=== PATIENT | female | born 1995 | race Two or more races ===

== ENCOUNTER 2025-09-14 18:39 | Emergency (ER) | payer MEDICAID, OTHER ==
[~2025-09-14] VITALS: Ht 180.3 cm; Wt 148.6 kg
--- NOTE | 2025-09-14 20:06 | DVH ---
Procedure: CT HEAD WITHOUT CONTRAST Study Date and Requested Time: 09/14/2025 07:14 PM History: headache Comparison: CT BRAIN on DOS: 12/11/24 Dose: CTDI: 60.75 mGy DLP: 1.71 mGycm Technique: Multiplanar images obtained through the brain without intravenous contrast. Findings: Normal brain volume and formation. Mild chronic small vessel ischemic changes. No hemorrhages, masses, mass effect, midline shift, herniation or cytotoxic edema following a large vascular territory. No intra-axial or extra-axial fluid collections. No evidence of hydrocephalus. The basal cisterns are patent. The pituitary gland, sella and parasellar regions are unremarkable. The cerebellar tonsils are in normal position. The cerebellum is unremarkable. The orbits and globes are unremarkable. Near-complete opacification of the left sphenoid sinus with mucoperiosteal thickening of the ethmoid air cells, right sphenoid sinus and right frontal sinus. Mucous retention cyst within the left maxillary sinus. The bilateral mastoids are clear. There are no worrisome calvarial lesions. Impression: No evidence of acute intracranial abnormality. Sinus disease as detailed above.
[2025-09-14 20:57] VITALS: BP 146/98; PULSE 60; RESP 18; TEMP 98.5; O2SAT 94
[2025-09-14] MEDS ORDERED: AMOX875T4 PO (21:01)
[2025-09-14] MEDS ORDERED: ACET500T58 PO (21:01)
--- NOTE | 2025-09-14 21:02 | ED.PDOC ---
HPI (NEURO) HPI Comments 30-year-old female presents to ER with complaints of headache x3 days. Patient reports that she has been experiencing 10/10 generalized headache with associated sinus congestion x3 days. Reports he has been taking ibuprofen and Tylenol for her pain without relief. Patient presents to ER ambulatory on arrival, alert oriented x4, with steady gait, in no distress. Denies fever, body aches, chills, nausea/vomiting, numbness/tingling, vision changes, confusion, head injury, neck pain or any further symptoms/complaints Chief Complaint: Headache Time Seen by MD: 18:54 Primary Care Provider: UNKNOWN Reviewed Notes: Nurses Notes, Medications, Allergies Information Source: Patient Mode of Arrival: Ambulatory Past Medical History PAST MEDICAL HISTORY: Denies Surgical History: Denies all surgeries DETECTIVE AND INTELLIGENCE ANALYST History: No Pertinent DETECTIVE AND INTELLIGENCE ANALYST History [facility] 09-05-25 Family History Family History: Unknown Social History Smoker: Non-Smoker Alcohol: Denies ETOH Use Drugs: Denies Drug Use Lives In: Home Constitutional: denies: chills, diaphoresis, fatigue, fever, malaise, sweats, weakness, others EENTM: reports: others (As stated in HPI) Respiratory: denies: cough, hemoptysis, orthopnea, SOB at rest, shortness of breath, SOB with excertion, stridor, wheezing, others Cardiovascular: denies: chest pain, dizzy spells, diaphoresis, Dyspnea on exertion, edema, irregular heart beat, left arm pain, lightheadedness, palpitations, PND, syncope, others Gastrointestinal: denies: abdomen distended, abdominal pain, blood streaked bowels, constipated, diarrhea, dysphagia, difficulty swallowing, hematemesis, melena, nausea, poor appetite, poor fluid intake, rectal bleeding, rectal pain, vomiting, others Genitourinary: denies: abnormal vagina bleeding, burning, dyspareunia, dysuria, flank pain, frequency, hematuria, incontinence, pain, , vagina discharge, urgency, others Neurological: reports: others (As stated in HPI) Musculoskeletal: denies: back pain, gout, joint pain, joint swelling, muscle pain, muscle stiffness, neck pain, others Integumetry: denies: bruises, change in color, change in hair/nails, dryness, laceration, lesions, lumps, rash, wounds, others Allergic/Immunocompromised: denies: Difficulty Healing, Frequent Infections, Hives, Itching, others Hematologic/Lymphatic: denies: anemia, blood clots, easy bleeding, easy bruising, swollen glands, others Endocrine: denies: excessive hunger, excessive sweating, excessive thirst, excessive urination, flushing, intolerance to cold, intolerance to heat, unexplained weight gain, unexplained weight loss, others Psychiatric: denies: anxiety, bipolar disorder, depression, hopeless, panic disorder, schizophrenia, sleepless, suicidal, others Physical Exam General Appearance: No Apparent Distress, Obese HEENT: Normal ENT Inspection, PERRL/EOMI, Pharynx Normal, TMs Normal Neck: Full Range of Motion, Non-Tender, Normal Respiratory: Chest Non-Tender, Lungs Clear, No Accessory Muscle Use, No Respiratory Distress, Normal Breath Sounds Cardiovascular: No Murmur, No Gallop, Regular Rate/Rhythm Breast Exam: Deferred Gastrointestinal: NOT DONE Genitalia: Deferred Pelvic: Deferred Rectal: Deferred Extremities: Normal capillary refill, Normal range of motion Neurologic: Alert, servomechanism designer II-XII nml as Tested, No Motor Deficits, Normal Affect, Normal Mood, No Sensory Deficits Cerebellar Function: Normal Reflexes: Normal Skin: Dry, Normal Color, Warm Peripheral Pulses: 2+ carotid (R), 2+ carotid (L), 2+ Radial (R), 2+ Radial (L), 2+ Brachial (R), 2+ Brachial (L) Lymphatic: No Adenopathy Was a procedure done? Was a procedure done?: No Sedation Sedation?: No Differential Diagnosis (SZ) Headache: Cluster, Migraine, Closed Head Injury, Subarachnoid Hemorrhage, Subdural Hemorrhage, Mass Lesion X-Ray, Labs, Meds, VS Vital Signs Date Time Temp Pulse Resp B/P (MAP) Pulse Ox O2 Delivery O2 Flow Rate FiO2 09/14/25 20:57 98.5 60 18 146/98 (114) 94 98.5 09/14/25 18:41 97.5 62 18 156/103 97 97.5 PATIENT: RICHARD SHEETS ACCT: [id number] UNIT: [id number] : 1995 LOC: ER ROOM / BED: / AGE / SEX: 30 / F ADM STATUS: REG ER SERVICE [id number] ORDERING PHYSICIAN: FLAVIA RODRIGUEZ PROCEDURE(s): HWOCT - HEAD WITHOUT CONTRAST REASON: headache ORDER NUMBER(s): [id number], ACCESSION NUMBER(s): [id number] Procedure: CT HEAD WITHOUT CONTRAST Study Date and Requested Time: 09/14/2025 07:14 PM History: headache Comparison: CT BRAIN on DOS: 12/11/24 Dose: CTDI: 60.75 mGy DLP: 1.71 mGycm Technique: Multiplanar images obtained through the brain without intravenous contrast. Findings: Normal brain volume and formation. Mild chronic small vessel ischemic changes. No hemorrhages, masses, mass effect, midline shift, herniation or cytotoxic edema following a large vascular territory. No intra-axial or extra-axial fluid collections. No evidence of hydrocephalus. The basal cisterns are patent. The pituitary gland, sella and parasellar regions are unremarkable. The cerebellar tonsils are in normal position. The cerebellum is unremarkable. The orbits and globes are unremarkable. Near-complete opacification of the left sphenoid sinus with mucoperiosteal thickening of the ethmoid air cells, right sphenoid sinus and right frontal sinus. Mucous retention cyst within the left maxillary sinus. The bilateral mastoids are clear. There are no worrisome calvarial lesions. Impression: No evidence of acute intracranial abnormality. Sinus disease as detailed above. ATED BY: DAMON VINCENT DO DICTATED DATE/TIME: 09/14/252003 SIGNED BY: DAMON VINCENT DO SIGNED DATE/TIME: 09/14/252003 CC: CT head without contrast reviewed Toradol 60 mg IM ordered Patient had improvement in symptoms and in no distress prior to discharge Advised to drink plenty of fluids Advised to follow up with PCP in 1-2 days Patient verbalized understanding and agreeable with current plan of care Advised to return to ER immediately if symptoms worsen Images Reviewed?: Images reviewed and evaluated by me Time of 1ST Reevaluation: 20:34 Reevaluation 1ST: N/A Patient Education/Counseling: Diagnosis, Treatment, Prognosis, Need For Follow Up Family Education/Counseling: No Family Present Departure 1 Departure Time of Disposition: 20:59 Impression: Primary Impression: Acute sinusitis Qualified Codes: J01.90 - Acute sinusitis, unspecified Additional Impression: Generalized headache Disposition: HOME / SELF CARE / HOMELESS Condition: Stable e-Prescriptions Amoxicillin & Pot Clavulanate (Amoxicillin/Potassium Cla) 875 Mg Tab 1 TAB PO BID for 10 Days, #20 TAB 0 Refills Prov: FLAVIA RODRIGUEZ 09/14/25 Acetaminophen (Acetaminophen) 500 Mg Tab 500 MG PO Q4HPRN, #30 TAB 0 Refills Prov: FLAVIA RODRIGUEZ 09/14/25 Discharged With: Self Critical Care Note Critical Care Time?: No Stability Stability form required: No Heart Score Heart Score: Heart Score Response (Comments) Value History N/A 0 EKG N/A 0 Age N/A 0 Risk Factors N/A 0 Troponin N/A 0 Total 0 FLAVIA RODRIGUEZ Sep 14, 2025 21:02
[2025-09-14] MEDS: KETOROLAC TROMETH 60MG/2ML VIAL IM ONE (21:04)
== END 2025-09-14 21:09 | disposition home or self-care (01) ==
LOC: ER 18:39
DX: J01.90 Acute sinusitis, unspecified (principal); R51.9 Headache, unspecified
CPT/HCPCS: 70450; 96372; 99285; J1885